=== PATIENT | male | born 1995 ===

== ENCOUNTER 2020-07-12 08:35 | Emergency (ER) | payer SELFPAY ==
[2020-07-12] MEDS ORDERED: Ketorolac Tromethamine 30 MG/ML VIAL ONE (08:53)
== END 2020-07-12 09:34 | disposition home or self-care (01) ==
LOC: ERS 08:35
DX: K04.01 Reversible pulpitis (principal); R59.0 Localized enlarged lymph nodes
CPT/HCPCS: 96372; 99283; J1885